=== PATIENT | female | born 1965 | race African-American/Black ===

== ENCOUNTER 2018-12-05 09:56 | Emergency (ER) | payer MEDICAID, OTHER ==
[~2018-12-05] VITALS: Ht 162.6 cm; Wt 65.0 kg
[2018-12-05] MEDS ORDERED: HYDROCODONE/ACETAMINOPHEN 5/325MG TABLET PO ONE (12:00)
[2018-12-05 14:50] VITALS: BP 118/63
== END 2018-12-05 15:00 | disposition home or self-care (01) ==
LOC: ER 09:56
DX: M25.512 Pain in left shoulder (principal); V47.5XXA Car driver injured in collision with fixed or stationary object in traffic accident, initial encounter; Y93.89 Activity, other specified; Y92.89 Other specified places as the place of occurrence of the external cause
CPT/HCPCS: 73000; 99283

== ENCOUNTER 2021-02-21 07:51 | Emergency (ER) | payer OTHER ==
[~2021-02-21] VITALS: Ht 154.9 cm; Wt 85.0 kg
[2021-02-21 07:55] VITALS: BP 139/88
[2021-02-21] MEDS ORDERED: ALBU6.7H11 INH (10:43)
[2021-02-21] MEDS ORDERED: AZIT250T12 MT (10:43)
[2021-02-21] MEDS ORDERED: ALBU05 NEB (10:56)
== END 2021-02-21 11:04 | disposition home or self-care (01) ==
LOC: ER 07:51
DX: J40 Bronchitis, not specified as acute or chronic (principal); Z20.822 Contact with and (suspected) exposure to COVID-19
CPT/HCPCS: 71045; 81025; 99284; C9803; U0003; U0005

== ENCOUNTER 2021-07-14 14:27 | Emergency (ER) | payer OTHER ==
[~2021-07-14] VITALS: Ht 154.9 cm; Wt 77.0 kg
[~2021-07-14 14:27] MED LIST: ALBU05 NEB; ALBU6.7H15 INH; AZIT250T12 MT; IBUP-2030 MT; TRAM50TA3 MT
[2021-07-14 14:40] VITALS: BP 93/75
[2021-07-14] MEDS ORDERED: P20 MT (16:32)
[2021-07-14] MEDS ORDERED: AZIT250T12 MT (16:32)
[2021-07-14] MEDS ORDERED: PROM6.254 MT (16:32)
== END 2021-07-14 16:41 | disposition home or self-care (01) ==
LOC: ER 14:27
DX: J45.909 Unspecified asthma, uncomplicated (principal); J42 Unspecified chronic bronchitis; E78.00 Pure hypercholesterolemia, unspecified; Z98.890 Other specified postprocedural states; Z79.899 Other long term (current) drug therapy
CPT/HCPCS: 71045; 99283

== ENCOUNTER 2021-07-19 11:47 | Emergency (ER) | payer OTHER ==
[~2021-07-19] VITALS: Ht 154.9 cm; Wt 78.0 kg
[~2021-07-19 11:47] MED LIST changes: +P20 MT; +PROM6.254 MT
[2021-07-19] MEDS ORDERED: ONDANSETRON HCL 4MG/2ML INJ IV STA (12:09)
[2021-07-19] MEDS ORDERED: KETOROLAC 30MG/ML VIAL IV STA (12:09)
[2021-07-19] MEDS ORDERED: ACETAMINOPHEN 325MG TABLET PO STA (12:13)
[2021-07-19] MEDS ORDERED: SODIUM CHLORIDE 0.9% 1000ML BAG (SEPSIS BOLUS) IV ONE (12:15)
[2021-07-19] MEDS ORDERED: SODIUM CHLORIDE 0.9% 1,000 ML IV ONE (12:15)
[2021-07-19 12:58] LABS: BASOPHILS % 0.3 % (0.0-2.0); HEMATOCRIT. 35.4 % (36.0-48.0); HEMOGLOBIN. 11.7 g/dL (12.0-16.0); LYMPHOCYTES % 20.7 % (20.0-50.0); MEAN CORPUSCULAR HEMOGLOBIN 29.7 pg (28.0-32.0); MEAN CORPUSCULAR VOLUME 90.1 fL (81.0-99.0); MEAN PLATELET VOLUME 9.7 fl (7.4-10.4); MONOCYTES % 3.4 % (2.0-8.0); NEUTROPHILS % 75.6 % (40.0-76.0); PLATELET 132 x1000/uL (130-400); RED BLOOD CELL COUNT 3.93 mill/uL (4.2-5.4); RED CELL DISTRIBUTION WIDTH 12.7 % (11.6-14.6)
[2021-07-19 13:09] LABS: CHLORIDE 105 mEq/L (98-107)
[2021-07-19 13:14] LABS: CLARITY URINE CLEAR (CLEAR); COLOR URINE DARK YELLOW (YELLOW); KETONES URINE NEGATIVE (NEGATIVE); LEUKOCYTE ESTERASE URINE NEGATIVE (NEGATIVE); NITRITE URINE NEGATIVE (NEGATIVE); OCCULT BLOOD URINE 3+ (NEGATIVE); PROTEIN URINE 4+ (NEGATIVE); SPECIFIC GRAVITY URINE 1.024 (1.005-1.030)
[2021-07-19] MEDS ORDERED: CEFTRIAXONE 1 G PREMIX 50 ML IV ONE (13:15)
[2021-07-19] MEDS ORDERED: DOXYCYCLINE HYCLATE 100 MG/VIAL IV ONE (13:15)
[2021-07-19] MEDS ORDERED: DOXYCYCLINE 100MG in DEXTROSE 5% WATER 100ML IV ONE (13:30)
[2021-07-19] MEDS ORDERED: NITR-87 MT (15:45)
[2021-07-19 15:58] VITALS: BP 117/75
== END 2021-07-19 16:19 | disposition home or self-care (01) ==
LOC: ER 11:47
DX: U07.1 COVID-19 (principal); N39.0 Urinary tract infection, site not specified; J45.909 Unspecified asthma, uncomplicated; E78.00 Pure hypercholesterolemia, unspecified; Z98.890 Other specified postprocedural states
CPT/HCPCS: 36415; 71045; 80053; 81003; 83605; 84145; 84484; 85025; 87040; 87086; 87426; 93005; 96365; 96367; 96375; 99285; J0696; J1885; J2405; J3490; J7030; J7060

== ENCOUNTER 2022-01-19 09:53 | Emergency (ER) | payer OTHER ==
[~2022-01-19] VITALS: Ht 157.5 cm; Wt 80.0 kg
[~2022-01-19 09:53] MED LIST changes: +NITR-87 MT
[2022-01-19 10:12] VITALS: BP 153/84
[2022-01-19 10:51] LABS: CLARITY URINE CLOUDY (CLEAR); COLOR URINE YELLOW (YELLOW); KETONES URINE NEGATIVE (NEGATIVE); LEUKOCYTE ESTERASE URINE 1+ (NEGATIVE); NITRITE URINE NEGATIVE (NEGATIVE); OCCULT BLOOD URINE NEGATIVE (NEGATIVE); PH URINE 5.5 (4.5-8.0); PROTEIN URINE 1+ (NEGATIVE); SPECIFIC GRAVITY URINE 1.015 (1.005-1.030); UROBILINOGEN URINE 0.2 E.U./dL (0.2-1.0)
[2022-01-19] MEDS ORDERED: DIF15 MT (13:52)
[2022-01-19] MEDS ORDERED: SULF1TAB48 MT (13:52)
[2022-01-20 11:01] LABS: UCG SCREEN NEGATIVE
== END 2022-01-19 14:13 | disposition home or self-care (01) ==
LOC: ER 10:01
DX: N39.0 Urinary tract infection, site not specified (principal); B37.3 Candidiasis of vulva and vagina; E78.00 Pure hypercholesterolemia, unspecified; J45.909 Unspecified asthma, uncomplicated; Z98.890 Other specified postprocedural states
CPT/HCPCS: 81003; 81025; 99283

== ENCOUNTER 2022-04-22 11:20 | Emergency (ER) | payer OTHER ==
[~2022-04-22] VITALS: Ht 165.1 cm; Wt 80.0 kg
[~2022-04-22 11:20] MED LIST changes: +DIF15 MT; +SULF1TAB48 MT
[2022-04-22 11:25] VITALS: BP 133/95
[2022-04-22 12:37] LABS: BASOPHILS % 0.8 % (0.0-2.0); EOSINOPHILS % 0.8 % (0.0-5.0); HEMATOCRIT. 36.5 % (36.0-48.0); HEMOGLOBIN. 11.8 g/dL (12.0-16.0); LYMPHOCYTES % 38.2 % (20.0-50.0); MEAN CORPUSCULAR HEMOGLOBIN 29.9 pg (28.0-32.0); MEAN PLATELET VOLUME 8.7 fl (7.4-10.4); MONOCYTES % 5.6 % (2.0-8.0); NEUTROPHILS % 54.6 % (40.0-76.0); PLATELET 253 x1000/uL (130-400); RED BLOOD CELL COUNT 3.96 mill/uL (4.2-5.4); RED CELL DISTRIBUTION WIDTH 12.9 % (11.6-14.6)
[2022-04-22 12:43] LABS: CHLORIDE 110 mEq/L (98-107)
[2022-04-22 12:52] LABS: B-HCG QUANTITATIVE < 1 mIU/mL (<3)
[2022-04-22] MEDS ORDERED: TC025C15 TP (15:43)
[2022-04-22 15:45] LABS: CLARITY URINE CLOUDY (CLEAR); COLOR URINE YELLOW (YELLOW); KETONES URINE TRACE (NEGATIVE); LEUKOCYTE ESTERASE URINE TRACE (NEGATIVE); NITRITE URINE NEGATIVE (NEGATIVE); OCCULT BLOOD URINE NEGATIVE (NEGATIVE); PH URINE 5.5 (4.5-8.0); PROTEIN URINE 2+ (NEGATIVE); SPECIFIC GRAVITY URINE 1.017 (1.005-1.030); UROBILINOGEN URINE 0.2 E.U./dL (0.2-1.0)
[2022-04-22] MEDS ORDERED: METR-167 MT (15:58)
[2022-04-22] MEDS ORDERED: METRONIDAZOLE 500MG TABLET PO ONE (16:00)
== END 2022-04-22 16:11 | disposition home or self-care (01) ==
LOC: ER 11:20
DX: N76.0 Acute vaginitis (principal); L43.9 Lichen planus, unspecified; N83.202 Unspecified ovarian cyst, left side; N83.201 Unspecified ovarian cyst, right side; J45.909 Unspecified asthma, uncomplicated; Z78.0 Asymptomatic menopausal state; Z98.890 Other specified postprocedural states
CPT/HCPCS: 36415; 76830; 76856; 80053; 81003; 81025; 84702; 85025; 86850; 86900; 87210; 87591; 99284

== ENCOUNTER 2022-09-30 09:22 | Emergency (ER) | payer MEDICAID, OTHER ==
[~2022-09-30] VITALS: Ht 152.4 cm; Wt 91.0 kg
[~2022-09-30 09:22] MED LIST changes: +METR-167 MT; +TC025C15 TP
[2022-09-30] MEDS ORDERED: ACETAMINOPHEN 325MG TABLET PO ONE (11:30)
[2022-09-30] MEDS ORDERED: ALBU05 NEB (11:49)
[2022-09-30] MEDS ORDERED: ALBU6.7H15 INH (11:49)
[2022-09-30 11:55] VITALS: BP 138/77
== END 2022-09-30 12:29 | disposition home or self-care (01) ==
LOC: ER 09:22
DX: R05.9 Cough, unspecified (principal); J45.909 Unspecified asthma, uncomplicated; E78.00 Pure hypercholesterolemia, unspecified; Z20.822 Contact with and (suspected) exposure to COVID-19; Z98.890 Other specified postprocedural states
CPT/HCPCS: 71045; 81025; 87426; 87804; 93005; 99285; C9803

== ENCOUNTER 2022-12-21 12:58 | Emergency (ER) | payer OTHER ==
[~2022-12-21] VITALS: Ht 160 cm; Wt 77.0 kg
[2022-12-21] MEDS ORDERED: KETOROLAC 30MG/ML VIAL IM ONE (13:15)
[2022-12-21 13:47] LABS: BASOPHILS % 0.7 % (0.0-2.0); EOSINOPHILS % 0.6 % (0.0-5.0); HEMATOCRIT. 34.1 % (36.0-48.0); HEMOGLOBIN. 11.1 g/dL (12.0-16.0); LYMPHOCYTES % 41.9 % (20.0-50.0); MEAN CORPUSCULAR HEMOGLOBIN 29.6 pg (28.0-32.0); MEAN PLATELET VOLUME 8.5 fl (7.4-10.4); MONOCYTES % 5.2 % (2.0-8.0); NEUTROPHILS % 51.6 % (40.0-76.0); PLATELET 240 x1000/uL (130-400); RED BLOOD CELL COUNT 3.74 mill/uL (4.2-5.4)
[2022-12-21 13:54] LABS: CHLORIDE 112 mEq/L (98-107)
[2022-12-21 13:55] VITALS: BP 132/87
[2022-12-21 14:32] LABS: CLARITY URINE CLEAR (CLEAR); COLOR URINE YELLOW (YELLOW); KETONES URINE NEGATIVE (NEGATIVE); LEUKOCYTE ESTERASE URINE NEGATIVE (NEGATIVE); NITRITE URINE NEGATIVE (NEGATIVE); OCCULT BLOOD URINE NEGATIVE (NEGATIVE); PROTEIN URINE 1+ (NEGATIVE); SPECIFIC GRAVITY URINE 1.014 (1.005-1.030); UROBILINOGEN URINE 0.2 E.U./dL (0.2-1.0)
[2022-12-21] MEDS ORDERED: DOXY100T2 MT (16:29)
[2022-12-21] MEDS ORDERED: CEFTRIAXONE SODIUM 500 MG/VIAL IM ONE (16:30)
[2022-12-24 04:07] LABS: NEISSERIA GONORRHOEAE NAA Negative (Negative)
== END 2022-12-21 17:02 | disposition home or self-care (01) ==
LOC: ER 12:58
DX: N95.2 Postmenopausal atrophic vaginitis (principal); J45.909 Unspecified asthma, uncomplicated; E78.00 Pure hypercholesterolemia, unspecified; Z98.890 Other specified postprocedural states; Z79.899 Other long term (current) drug therapy
CPT/HCPCS: 36415; 80053; 81003; 83690; 85025; 87210; 87491; 87591; 96372; 99284; J0696; J1885

== ENCOUNTER 2024-07-20 16:58 | Emergency (ER) | payer MEDICAID, OTHER ==
[~2024-07-20] VITALS: Ht 165.1 cm; Wt 85.0 kg
[~2024-07-20 16:58] MED LIST changes: +DOXY100T2 MT; +PROM6.2527 MT; -PROM6.254 MT
[2024-07-20 17:22] VITALS: BP 127/88; PULSE 98; RESP 18; TEMP 97.8; O2SAT 99
[2024-07-20] MEDS ORDERED: BO1 TP (18:03)
[2024-07-20] MEDS: IBUPROFEN 600MG TABLET PO ONE (18:13)
[2024-07-20] MEDS: TETANUS, DIPHTHERIA, PERTUSSIS VAC/PF 0.5ML (>10YR OLD) IM ONE (18:14)
[2024-07-20] MEDS: BACITRACIN ZINC OINT UDPKT TOP ONE (18:14)
== END 2024-07-20 18:35 | disposition home or self-care (01) ==
LOC: ER 16:58
DX: T22.232A Burn of second degree of left upper arm, initial encounter (principal); J45.909 Unspecified asthma, uncomplicated; E78.00 Pure hypercholesterolemia, unspecified; D64.9 Anemia, unspecified; Z79.899 Other long term (current) drug therapy; X08.8XXA Exposure to other specified smoke, fire and flames, initial encounter; Y93.89 Activity, other specified; Y92.89 Other specified places as the place of occurrence of the external cause; Y99.8 Other external cause status
CPT/HCPCS: 16020; 81025; 90471; 90715; 99283

== ENCOUNTER 2025-02-28 16:51 | Emergency (ER) | payer MEDICAID ==
[~2025-02-28] VITALS: Ht 157.5 cm; Wt 78.0 kg
[~2025-02-28 16:51] MED LIST changes: +BO1 TP
[2025-02-28 16:54] VITALS: O2SAT 100
[2025-02-28 16:59] VITALS: PULSE 98; TEMP 36.7; O2SAT 99
[2025-02-28] MEDS ORDERED: LIDO-53 TP (18:05)
[2025-02-28] MEDS ORDERED: ACET-2708 MT (18:05)
[2025-02-28] MEDS: ACETAMINOPHEN 500MG TABLET PO ONE (18:38)
[2025-02-28 18:39] VITALS: BP 139/84; RESP 14
[2025-02-28] MEDS: LIDOCAINE 5% PATCH TOP SCH (18:39)
== END 2025-02-28 18:58 | disposition home or self-care (01) ==
LOC: ER 16:51
DX: M54.50 Low back pain, unspecified (principal); E78.00 Pure hypercholesterolemia, unspecified; J45.909 Unspecified asthma, uncomplicated; Z79.899 Other long term (current) drug therapy
CPT/HCPCS: 99283

== ENCOUNTER → 2025-04-16 | Emergency (ER) | payer MEDICAID ==
[~2025-04-16] VITALS: Ht 157.5 cm; Wt 91.0 kg
[~2025-04-16] MED LIST changes: +ACET-2708 MT; +CYCL5TAB3 MT; +LIDO-53 TP
[2025-04-16 10:46] VITALS: O2SAT 100
[2025-04-16] MEDS: ACETAMINOPHEN 325MG TABLET PO ONE (13:16)
[2025-04-16] MEDS: IBUPROFEN 800MG TABLET PO ONE (13:17)
[2025-04-16 14:36] VITALS: BP 135/73; PULSE 76; RESP 17; TEMP 36.7; O2SAT 100
== END ==
LOC: ER 10:30
DX: M54.89 Other dorsalgia (principal); E78.00 Pure hypercholesterolemia, unspecified; J45.909 Unspecified asthma, uncomplicated; W01.0XXA Fall on same level from slipping, tripping and stumbling without subsequent striking against object, initial encounter; Y93.89 Activity, other specified; Y92.89 Other specified places as the place of occurrence of the external cause; Y99.8 Other external cause status
CPT/HCPCS: 72100; 99283